=== PATIENT | female | born 1960 ===

== ENCOUNTER 2022-06-13 05:28 | Day surgery (SDC) | payer BC ==
[2022-06-13] MEDS ORDERED: Midazolam 1 MG/ML 2 ML SDV IV ONE ×7 (05:29→06:38)
[2022-06-13] MEDS ORDERED: fentaNYL 100 MCG/2 ML SDV IV ONE ×7 (05:29→06:44)
[2022-06-13] MEDS ORDERED: Dextrose 5%-0.45% NaCl 1,000 ML IV SCH (05:30)
[2022-06-13 11:52] VITALS: BP 141/85; PULSE 65
== END 2022-06-13 12:15 | disposition home or self-care (01) ==
LOC: DL.ENDO 05:28
PROVIDERS: ATTEND Internal Medicine Gastroenterology
DX: Z12.11 Encounter for screening for malignant neoplasm of colon (principal); I10 Essential (primary) hypertension; E66.09 Other obesity due to excess calories; E03.9 Hypothyroidism, unspecified; E11.9 Type 2 diabetes mellitus without complications; E55.9 Vitamin D deficiency, unspecified; Z68.37 Body mass index [BMI] 37.0-37.9, adult
CPT/HCPCS: J2250; J3010; J7042